=== PATIENT | male | born 2000 | race Two or more races ===

== ENCOUNTER 2021-04-26 22:27 | Emergency (ER) | payer OTHER ==
[2021-04-26 22:38] VITALS: BP 141/86; PULSE 76; TEMP 97.8; BMI 21.7
[2021-04-26] MEDS ORDERED: BUPIVACAINE HCL/PF 0.5% (5 MG/ML) 30 ML VIAL IJ ONE (23:09)
[2021-04-26] MEDS ORDERED: CLINDAMYCIN HCL 300 MG CAPSULE PO ONE (23:10)
[2021-04-26] MEDS ORDERED: IBUPROFEN 600 MG TABLET (FP) PO ONE ×2 (23:10→23:16)
[2021-04-26] MEDS ORDERED: CLINDAMYCIN HCL 150 MG CAPSULE (FP) ONE (23:16)
[2021-04-26] MEDS ORDERED: BUPIVACAINE HCL/PF 0.5% (5MG/ML) 10 ML VIAL ONE (23:16)
== END 2021-04-26 23:35 | disposition left against medical advice (07) ==
LOC: JERFT 22:27 → JER 22:27 → JERFT 23:35
DX: K04.7 Periapical abscess without sinus (principal)
CPT/HCPCS: 99283-25